=== PATIENT | male | born 1970 | race African-American/Black ===

== ENCOUNTER 2021-07-10 18:33 | Emergency (ER) | payer OTHER, BC ==
[2021-07-10] MEDS ORDERED: CYCLOBENZAPRINE5 MG PO (22:04)
== END 2021-07-10 22:15 | disposition home or self-care (01) ==
LOC: ER1 18:33
DX: S46.911A Strain of unspecified muscle, fascia and tendon at shoulder and upper arm level, right arm, initial encounter (principal); I10 Essential (primary) hypertension; Z94.0 Kidney transplant status; V49.9XXA Car occupant (driver) (passenger) injured in unspecified traffic accident, initial encounter; Y92.410 Unspecified street and highway as the place of occurrence of the external cause
CPT/HCPCS: 73030; 73130; 99284